=== PATIENT | female | born 1995 | race Caucasian/White ===

== ENCOUNTER 2017-02-27 15:58 | Emergency (ER) | payer OTHER ==
[~2017-02-27] VITALS: Ht 170.2 cm; Wt 70.3 kg
[2017-02-27 16:01] VITALS: BP 144/66
== END 2017-02-27 18:19 | disposition home or self-care (01) ==
LOC: ED 15:58
DX: J02.9 Acute pharyngitis, unspecified (principal); H92.02 Otalgia, left ear; R51 Headache; M79.1 Myalgia; Z79.3 Long term (current) use of hormonal contraceptives

== ENCOUNTER 2018-03-13 23:02 | Emergency (ER) | payer OTHER ==
[~2018-03-13] VITALS: Ht 170.2 cm; Wt 74.4 kg
[2018-03-13 23:08] VITALS: BP 135/81; Ht 170.2 cm; Wt 74.4 kg
== END 2018-03-14 02:59 | disposition left against medical advice (07) ==
LOC: ED 23:02
DX: Z53.21 Procedure and treatment not carried out due to patient leaving prior to being seen by health care provider (principal)

== ENCOUNTER 2018-03-31 19:00 | Emergency (ER) | payer OTHER ==
[~2018-03-31] VITALS: Ht 170.2 cm; Wt 72.6 kg
[2018-03-31 19:04] VITALS: Ht 170.2 cm; Wt 72.6 kg
[2018-03-31 21:33] VITALS: BP 127/62
== END 2018-03-31 21:33 | disposition home or self-care (01) ==
LOC: ED 19:00
DX: S39.012A Strain of muscle, fascia and tendon of lower back, initial encounter (principal); V43.52XA Car driver injured in collision with other type car in traffic accident, initial encounter; Y93.I9 Activity, other involving external motion; Y92.488 Other paved roadways as the place of occurrence of the external cause; Y99.8 Other external cause status

== ENCOUNTER 2019-02-02 08:03 | Emergency (ER) | payer MEDICAID ==
[~2019-02-02] VITALS: Ht 170.2 cm; Wt 77.1 kg
[2019-02-02 08:07] VITALS: BP 106/61; Ht 170.2 cm; Wt 77.1 kg
== END 2019-02-02 08:40 | disposition home or self-care (01) ==
LOC: ED 08:03
DX: N39.0 Urinary tract infection, site not specified (principal)

== ENCOUNTER 2019-09-18 14:49 | Emergency (ER) | payer MEDICAID ==
[~2019-09-18] VITALS: Ht 170.2 cm; Wt 78.9 kg
[2019-09-18 14:52] VITALS: Ht 170.2 cm; Wt 78.9 kg
[2019-09-18 15:40] LABS: UA SPECIFIC GRAVITY 1.015 (1.005-1.035); microscopic required? YES; urine erythrocyte 1+ (NEGATIVE)
[2019-09-18 17:37] VITALS: BP 124/63
== END 2019-09-18 17:37 | disposition home or self-care (01) ==
LOC: ED 14:49
PROVIDERS: Emergency Medicine
DX: N39.0 Urinary tract infection, site not specified (principal); J98.01 Acute bronchospasm; Z98.890 Other specified postprocedural states
CPT/HCPCS: 87804

== ENCOUNTER 2019-09-24 23:06 | Emergency (ER) | payer MEDICAID ==
[~2019-09-24] VITALS: Ht 170.2 cm; Wt 79.4 kg
[2019-09-24 23:14] VITALS: Ht 170.2 cm; Wt 79.4 kg
[2019-09-25 00:21] VITALS: BP 115/46
== END 2019-09-25 00:21 | disposition home or self-care (01) ==
LOC: ED 23:06
DX: J04.0 Acute laryngitis (principal)
CPT/HCPCS: J1100

== ENCOUNTER 2019-10-02 15:35 | Emergency (ER) | payer MEDICAID ==
[~2019-10-02] VITALS: Ht 170.2 cm; Wt 79.4 kg
[2019-10-02 15:46] VITALS: Ht 170.2 cm; Wt 79.4 kg
[2019-10-02 17:10] VITALS: BP 120/78
== END 2019-10-02 17:10 | disposition home or self-care (01) ==
LOC: ED 15:35
DX: K11.20 Sialoadenitis, unspecified (principal)